=== PATIENT | female | born 1975 | race Caucasian/White ===

== ENCOUNTER 2018-07-13 16:22 | Inpatient (IN) | payer OTHER ==
[~2018-07-13] VITALS: Ht 170.2 cm; Wt 103.4 kg
[~2018-07-13 16:22] MED LIST: ATENOLOL25 MG PO; TRAMADOL HCL-1 UDTAB
[2018-07-16] MEDS ORDERED: DULCOLAX STOOL100 MG PO (10:41)
[2018-07-16] MEDS ORDERED: PERCOCET 5-3251 EACH PO (10:41)
[2018-07-16] MEDS ORDERED: DICLOFENAC POTA50 MG PO (10:41)
== END 2018-07-16 12:39 | disposition home or self-care (01) | DRG 349 ==
LOC: ER 16:22 → SURG 19:10 → SEC-K 19:10 → SURG 22:10
PROVIDERS: Surgery
PROC: 3E0T3BZ Introduction of Anesthetic Agent into Peripheral Nerves and Plexi, Percutaneous Approach (ICD-10-PCS; 2018-07-14)
PROC: 06BY0ZC Excision of Hemorrhoidal Plexus, Open Approach (ICD-10-PCS; principal; 2018-07-14 10:00)
DX: K64.1 Second degree hemorrhoids (principal); K64.5 Perianal venous thrombosis; I10 Essential (primary) hypertension; E11.9 Type 2 diabetes mellitus without complications; E78.49 Other hyperlipidemia

== ENCOUNTER 2018-11-27 06:30 | Day surgery (SDC) | payer OTHER ==
[~2018-11-27 06:30] MED LIST changes: +DICLOFENAC POTA50 MG PO; +DULCOLAX STOOL100 MG PO; +PERCOCET 5-3251 EACH PO
== END 2018-11-27 13:00 | disposition home or self-care (01) ==
LOC: AMB-ENDOS 06:30
DX: K57.30 Diverticulosis of large intestine without perforation or abscess without bleeding (principal); K64.0 First degree hemorrhoids

== ENCOUNTER 2018-12-19 09:16 | Outpatient (CLI) | payer OTHER | END 2018-12-19 09:20 | disposition home or self-care (01) | LOC: LAB 09:16 | DX: C50.111 Malignant neoplasm of central portion of right female breast (principal); D01.0 Carcinoma in situ of colon; D63.1 Anemia in chronic kidney disease; D63.0 Anemia in neoplastic disease; D51.3 Other dietary vitamin B12 deficiency anemia; K80.64 Calculus of gallbladder and bile duct with chronic cholecystitis without obstruction; E55.9 Vitamin D deficiency, unspecified; E08.65 Diabetes mellitus due to underlying condition with hyperglycemia; I73.89 Other specified peripheral vascular diseases; Z86.010 Personal history of colon polyps; E08.21 Diabetes mellitus due to underlying condition with diabetic nephropathy; I10 Essential (primary) hypertension; E03.8 Other specified hypothyroidism; E78.49 Other hyperlipidemia; D50.8 Other iron deficiency anemias; D51.8 Other vitamin B12 deficiency anemias; R97.0 Elevated carcinoembryonic antigen [CEA]; R97.8 Other abnormal tumor markers ==

== ENCOUNTER 2018-12-19 11:17 | Outpatient (CLI) | payer OTHER | END 2018-12-19 13:49 | disposition home or self-care (01) | LOC: RAD 11:17 | DX: K64.5 Perianal venous thrombosis (principal); K64.1 Second degree hemorrhoids; K59.09 Other constipation; C7A.012 Malignant carcinoid tumor of the ileum; R59.0 Localized enlarged lymph nodes; R07.89 Other chest pain ==

== ENCOUNTER 2019-01-04 19:58 | Emergency (ER) | payer OTHER ==
[~2019-01-04] VITALS: Ht 162.6 cm; Wt 99.8 kg
[2019-01-04] MEDS ORDERED: ATENOLOL50 MG (20:12)
== END 2019-01-05 13:13 | disposition home or self-care (01) ==
LOC: ER 19:58
DX: R14.0 Abdominal distension (gaseous) (principal); R10.84 Generalized abdominal pain

== ENCOUNTER 2019-01-08 07:15 | Inpatient (IN) | payer OTHER ==
[~2019-01-08] VITALS: Ht 170.2 cm; Wt 102.1 kg
[~2019-01-08 07:15] MED LIST changes: +ATENOLOL50 MG
[2019-01-19] MEDS ORDERED: OMEPRAZOLE40 MG PO (13:42)
[2019-01-19] MEDS ORDERED: INTESTINEX680 M1 PO (13:42)
[2019-01-19] MEDS ORDERED: PERCOCET 5-3251 EACH PO (13:42)
== END 2019-01-19 14:11 | disposition home or self-care (01) | DRG 331 ==
LOC: SURH 01-16 07:15 → O/R 01-16 08:06 → SURH 01-16 14:15
PROVIDERS: ADMIT Surgery
PROC: 07TB4ZZ Resection of Mesenteric Lymphatic, Percutaneous Endoscopic Approach (ICD-10-PCS; 2019-01-16)
PROC: 0DTF4ZZ Resection of Right Large Intestine, Percutaneous Endoscopic Approach (ICD-10-PCS; principal; 2019-01-16 14:15)
DX: K64.5 Perianal venous thrombosis (principal); K64.1 Second degree hemorrhoids; R59.0 Localized enlarged lymph nodes; I11.9 Hypertensive heart disease without heart failure

== ENCOUNTER 2019-01-24 10:04 | Outpatient (CLI) | payer OTHER ==
[~2019-01-24 10:04] MED LIST changes: +INTESTINEX680 M1 PO; +OMEPRAZOLE40 MG PO
== END 2019-01-24 10:07 | disposition home or self-care (01) ==
LOC: TOM 10:04
DX: E04.1 Nontoxic single thyroid nodule (principal)

== ENCOUNTER → 2019-01-29 | Outpatient (CLI) | payer OTHER | END | disposition home or self-care (01) | LOC: SONOGRAMA 08:43 | DX: R22.2 Localized swelling, mass and lump, trunk (principal) ==

== ENCOUNTER 2019-02-27 06:58 | Outpatient (CLI) | payer OTHER | END 2019-02-27 07:23 | disposition home or self-care (01) | LOC: LAB 06:58 | DX: N95.1 Menopausal and female climacteric states (principal); B35.1 Tinea unguium; D50.8 Other iron deficiency anemias; E03.8 Other specified hypothyroidism; E78.2 Mixed hyperlipidemia; I11.9 Hypertensive heart disease without heart failure; E56.8 Deficiency of other vitamins; N39.0 Urinary tract infection, site not specified; Z12.11 Encounter for screening for malignant neoplasm of colon; E55.9 Vitamin D deficiency, unspecified; N19 Unspecified kidney failure; E11.9 Type 2 diabetes mellitus without complications; R80.8 Other proteinuria; C18.0 Malignant neoplasm of cecum; K92.1 Melena ==

== ENCOUNTER 2019-04-02 12:26 | Emergency (ER) | payer OTHER ==
[~2019-04-02] VITALS: Ht 170.2 cm; Wt 102.1 kg
[2019-04-02] MEDS ORDERED: COZAAR50 MG (12:54)
== END 2019-04-03 03:06 | disposition home or self-care (01) ==
LOC: ER 12:26
DX: K80.20 Calculus of gallbladder without cholecystitis without obstruction (principal); R10.11 Right upper quadrant pain

== ENCOUNTER 2020-02-07 14:00 | Outpatient (CLI) | payer OTHER ==
[~2020-02-07 14:00] MED LIST changes: +COZAAR50 MG
== END 2020-02-07 14:09 | disposition home or self-care (01) ==
LOC: LAB 14:00
PROVIDERS: ATTEND Internal Medicine Geriatric Medicine
DX: D50.8 Other iron deficiency anemias (principal); E03.8 Other specified hypothyroidism; E78.2 Mixed hyperlipidemia; I11.9 Hypertensive heart disease without heart failure; E56.8 Deficiency of other vitamins; N39.0 Urinary tract infection, site not specified; Z12.11 Encounter for screening for malignant neoplasm of colon; E55.9 Vitamin D deficiency, unspecified; N19 Unspecified kidney failure; E11.9 Type 2 diabetes mellitus without complications; R80.8 Other proteinuria; K92.1 Melena; K65.4 Sclerosing mesenteritis; K64.1 Second degree hemorrhoids; K59.09 Other constipation; C7A.012 Malignant carcinoid tumor of the ileum; R59.0 Localized enlarged lymph nodes; C7A.022 Malignant carcinoid tumor of the ascending colon

== ENCOUNTER 2020-02-25 09:43 | Day surgery (SDC) | payer OTHER | END 2020-02-25 16:10 | disposition home or self-care (01) | LOC: AMB-ENDOS 09:43 → ADM 14:00 → AMB-ENDOS 16:10 | PROVIDERS: ATTEND Surgery | DX: K62.89 Other specified diseases of anus and rectum (principal) ==